=== PATIENT | female | born 1975 | race Caucasian/White ===

== ENCOUNTER → 2017-01-04 | Outpatient (REF) | payer OTHER | LOC: M LAB REF 18:39 | PROVIDERS: ATTEND Family Medicine | DX: Z12.4 Encounter for screening for malignant neoplasm of cervix (principal) ==

== ENCOUNTER → 2017-08-11 | Outpatient (CLI) | payer OTHER ==
[2017-08-11 18:12] LABS: BASO # 0.1 10^3/uL (0.0-0.2); EOS # 0.1 10^3/uL (0.0-0.50); EOS % 1.9 % (0.0-3.0); HEMATOCRIT 39.3 % (36.0-47.0); IMMATURE GRANULOCYTE % 0.2 % (0-3.0); LYMPH # 1.6 10^3/uL (1.5-4.5); MEAN CORPUSCULAR HEMOGLOBIN 31.1 pg (27.0-33.0); MEAN CORPUSCULAR HGB CONC 33.1 g/dl (32.0-36.5); MONO # 0.3 10^3/uL (0.0-0.8); MONO % 6.5 % (0.0-5.0); NEUTROPHILS # 2.7 10^3/uL (1.8-7.7); NEUTROPHILS % 56.4 % (36.0-66.0); PLATELET COUNT, AUTOMATED 249 10^3/uL (150-450); RED BLOOD COUNT 4.18 10^6/uL (4.00-5.40); RED CELL DISTRIBUTION WIDTH 12.4 % (11.5-14.5); WHITE BLOOD COUNT 4.8 10^3/uL (4.0-10.0)
[2017-08-11 18:49] LABS: TOTAL 25(OH) VITAMIN D 34.8 NG/ML (30.0-100.0); VITAMIN B12 LEVEL 298 PG/ML
[2017-08-11 18:57] LABS: ALBUMIN 4.4 GM/DL (3.2-5.2); ALBUMIN/GLOBULIN RATIO 1.47 (1.00-1.93); ALKALINE PHOSPHATASE 44 U/L (45-117); ALT/SGPT 23 U/L (12-78); ANION GAP 6 MEQ/L (8-16); AST/SGOT 15 U/L (7-37); BILIRUBIN,TOTAL 0.6 MG/DL (0.2-1.0); BLOOD UREA NITROGEN 10 MG/DL (7-18); CALCIUM LEVEL 8.8 MG/DL (8.5-10.1); CARBON DIOXIDE LEVEL 29 MEQ/L (21-32); CHLORIDE LEVEL 107 MEQ/L (98-107); CREATININE FOR GFR 0.83 MG/DL (0.55-1.30); FREE T4 0.81 NG/DL (0.76-1.46); GLOMERULAR FILTRATION RATE > 60.0 (>58); GLUCOSE, FASTING 82 MG/DL (70-100); MAGNESIUM LEVEL 2.2 MG/DL (1.8-2.4); POTASSIUM SERUM 4.2 MEQ/L (3.5-5.1); SODIUM LEVEL 142 MEQ/L (136-145); TOTAL PROTEIN 7.4 GM/DL (6.4-8.2)
[2017-08-14 00:06] LABS: HSV IgM TYPES 1&2 <0.91 Ratio (0.00-0.90); HSV TYPE I IgG SPECIFIC 1.28 index (0.00-0.90); HSV TYPE II IgG SPECIFIC <0.91 index (0.00-0.90); Lyme Disease IgG/IgM Antibodie <0.91 ISR (0.00-0.90); Lyme Disease IgM Ab Quantitati <0.80 index (0.00-0.79)
== END ==
LOC: M SMT 12:59
DX: F45.8 Other somatoform disorders (principal)
CPT/HCPCS: 82746

== ENCOUNTER → 2018-08-21 | Outpatient (CLI) | payer OTHER ==
[2018-08-21 08:26] LABS: FREE T4 0.73 NG/DL (0.76-1.46); THYROID STIMULATING HORMONE 1.72 uIU/ML (0.358-3.740)
[2018-08-21 10:44] LABS: FOLLICLE STIMULATING HORMONE 6.6 mIU/mL; LUTEINIZING HORMONE 3.9 mIU/mL
== END ==
LOC: M LAB 07:24
PROVIDERS: ATTEND Family Medicine
DX: N92.6 Irregular menstruation, unspecified (principal); L68.0 Hirsutism

== ENCOUNTER → 2018-10-23 | Outpatient (REF) | payer OTHER ==
[2018-10-23 10:16] LABS: FREE T4 0.67 NG/DL (0.76-1.46); THYROID STIMULATING HORMONE 2.59 uIU/ML (0.358-3.740)
== END ==
LOC: M SFHCPLAZ 08:02
PROVIDERS: ATTEND Family Medicine
DX: R79.89 Other specified abnormal findings of blood chemistry (principal)

== ENCOUNTER → 2018-11-02 | Outpatient (CLI) | payer OTHER ==
--- NOTE | 2018-11-02 17:04 | REP ---
HISTORY: Vaginal bleeding with metromenorrhagia. COMPARISON: None. Transvesical and transvaginal imaging was obtained. The uterus measures 10.2 x 5 x 6.4 cm. The parenchymal echo pattern is heterogenous but there are no discrete masses. The endometrial echo complex measures 8 mm in its greatest thickness. There is no free fluid in the cul-de-sac. No abnormal fluid is seen in the endometrial cavity or endocervical canal. The right ovary measures 2.8 x 1.5 x 2.7 cm and is within normal limits with an RI of 0.41. The left ovary measures 5.1 x 3.7 x 4.6 cm. Within the substance of the left ovary there is a 3.8 x 2.5 x 3.5 cm sized anechoic structure which exhibits posterior wall enhancement and increased through transmission. This is without septations or papillary projections. The left ovarian RI is 0.41. The urinary bladder measures 5 x 5 x 9 cm. IMPRESSION: Left ovarian cyst as described above. Two month followup is suggested. Electronically Signed by Davi Taylor DO 11/02/2018 06:15 P
== END ==
LOC: M RAD 15:17
PROVIDERS: ATTEND Specialist
DX: N93.8 Other specified abnormal uterine and vaginal bleeding (principal); N83.202 Unspecified ovarian cyst, left side

== ENCOUNTER → 2019-01-12 | Outpatient (CLI) | payer OTHER ==
--- NOTE | 2019-01-12 16:21 | REP ---
PELVIC ULTRASOUND: Real-time sonographic evaluation of pelvis performed utilizing transabdominal and endovaginal technique. Bladder measures 4.6 x 4.4 x 9.2 cm. Uterus measures 10.8 x 5.6 x 6.6 cm. Endometrial thickness is 15 mm. No endometrial fluid collection is seen. Right ovary measures 3.4 x 1.4 x 2.3 cm. There appears to be a small paraovarian cystic structure in the right adnexa, 2.3 x 1.2 x 1.7 cm. Left ovary measures 4.7 x 2.5 x 4.4 cm and contains a dominant follicle 2 cm in diameter. No other evidence of adnexal mass is seen. No free fluid is seen. IMPRESSION: Endometrial thickness 15 mm. Simple paraovarian cystic structure right adnexa 2.3 x 1.2 x 1.7 cm. Dominant follicle left ovary 2 cm in maximum diameter. No other evidence of adnexal mass or free fluid. I see no evidence of ovarian torsion, with blood flow seen in each ovary with duplex Doppler evaluation. Electronically Signed by Corby Carreno MD 01/12/2019 04:34 P
== END ==
LOC: M RAD 15:13
PROVIDERS: ATTEND Specialist
DX: N93.9 Abnormal uterine and vaginal bleeding, unspecified (principal)

== ENCOUNTER → 2019-01-15 | Outpatient (CLI) | payer OTHER ==
[2019-01-15 09:05] LABS: FREE T4 0.76 NG/DL (0.76-1.46); THYROID STIMULATING HORMONE 2.92 uIU/ML (0.358-3.740)
== END ==
LOC: M LAB 07:58
PROVIDERS: ATTEND Family Medicine
DX: R79.89 Other specified abnormal findings of blood chemistry (principal)

== ENCOUNTER → 2019-03-22 | Outpatient (CLI) | payer OTHER ==
[2019-03-22 14:06] LABS: BASO % 0.8 % (0.0-1.0); EOS # 0.2 10^3/uL (0.0-0.5); EOS % 3.7 % (0.0-3.0); HEMATOCRIT 40.7 % (36.0-47.0); HEMOGLOBIN 13.1 g/dl (12.0-15.5); LYMPH # 1.5 10^3/uL (1.5-5.0); LYMPH % 30.2 % (24.0-44.0); MEAN CORPUSCULAR HEMOGLOBIN 30.5 pg (27.0-33.0); MEAN CORPUSCULAR HGB CONC 32.2 g/dl (32.0-36.5); MEAN CORPUSCULAR VOLUME 94.7 fl (80.0-96.0); MONO # 0.3 10^3/uL (0.0-0.8); MONO % 6.9 % (0.0-5.0); NEUTROPHILS # 2.8 10^3/uL (1.5-8.5); PLATELET COUNT, AUTOMATED 266 10^3/uL (150-450); WHITE BLOOD COUNT 4.9 10^3/uL (4.0-10.0)
[2019-03-22 14:07] LABS: HEMATOCRIT 40.7 % (36.0-47.0)
[2019-03-22 14:57] LABS: ALBUMIN 4.3 GM/DL (3.2-5.2); ALT/SGPT 19 U/L (12-78); BILIRUBIN,TOTAL 0.5 MG/DL (0.2-1.0); BLOOD UREA NITROGEN 16 MG/DL (7-18); CALCIUM LEVEL 8.6 MG/DL (8.5-10.1); CARBON DIOXIDE LEVEL 26 MEQ/L (21-32); CHLORIDE LEVEL 107 MEQ/L (98-107); CHOLESTEROL LEVEL 173 MG/DL (<200); CHOLESTEROL RISK RATIO 1.632 (<5); CREATININE FOR GFR 0.82 MG/DL (0.55-1.30); GLOMERULAR FILTRATION RATE > 60.0 (>58); GLUCOSE, FASTING 94 MG/DL (70-100); HDL CHOLESTEROL 106 MG/DL (>40); IMMUNOGLOBULIN G 931 MG/DL (681-1648); LDL CHOLESTEROL 57 MG/DL (<100); NON-HDL-C 67 MG/DL; POTASSIUM SERUM 4.4 MEQ/L (3.5-5.1); SODIUM LEVEL 139 MEQ/L (136-145); TOTAL 25(OH) VITAMIN D 51.9 NG/ML (30.0-100.0); TOTAL PROTEIN 7.1 GM/DL (6.4-8.2); TRIGLYCERIDES LEVEL 49 MG/DL (<150); VITAMIN B12 LEVEL 504 PG/ML (247-911)
[2019-03-22 15:00] LABS: ALBUMIN 4.2 GM/DL (3.2-5.2); ALT/SGPT 15 U/L (12-78); BILIRUBIN,TOTAL 0.5 MG/DL (0.2-1.0); BLOOD UREA NITROGEN 16 MG/DL (7-18); CALCIUM LEVEL 8.6 MG/DL (8.5-10.1); CARBON DIOXIDE LEVEL 26 MEQ/L (21-32); CHLORIDE LEVEL 107 MEQ/L (98-107); CHOLESTEROL LEVEL 169 MG/DL (<200); CHOLESTEROL RISK RATIO 1.625 (<5); CREATININE FOR GFR 0.78 MG/DL (0.55-1.30); FREE T4 0.83 NG/DL (0.76-1.46); GLOMERULAR FILTRATION RATE > 60.0 (>58); GLUCOSE, FASTING 97 MG/DL (70-100); HDL CHOLESTEROL 104 MG/DL (>40); LDL CHOLESTEROL 55 MG/DL (<100); NON-HDL-C 65 MG/DL; POTASSIUM SERUM 4.4 MEQ/L (3.5-5.1); SODIUM LEVEL 139 MEQ/L (136-145); TOTAL PROTEIN 7.1 GM/DL (6.4-8.2); TRIGLYCERIDES LEVEL 48 MG/DL (<150)
== END ==
LOC: M PLALAB 08:24
PROVIDERS: ATTEND Family Medicine
DX: Z13.1 Encounter for screening for diabetes mellitus (principal); Z13.220 Encounter for screening for lipoid disorders; R79.89 Other specified abnormal findings of blood chemistry; F43.8 Other reactions to severe stress; M62.838 Other muscle spasm

== ENCOUNTER → 2019-11-21 | Outpatient (REF) | payer OTHER | LOC: M SFHCWAGY 19:03 | PROVIDERS: ATTEND Specialist | DX: Z12.4 Encounter for screening for malignant neoplasm of cervix (principal) | CPT/HCPCS: 87624; G0123 ==

== ENCOUNTER → 2020-08-13 | Outpatient (CLI) | payer OTHER ==
--- NOTE | 2020-08-13 15:35 | REPMRS ---
Patient History The patient states she had a clinical breast exam in February2020. Family history of prostate cancer at age 50 or over in maternal grandfather, prostate cancer at age 50 or over in maternal uncle. Patient states no breast complaints. Patient has signed the MRS history sheet. Digital Woman Screen Mammo: August 13, 2020 - Exam #: [id number] Bilateral CC and MLO view(s) were taken. Technologist: Mary Stallings, Technologist Prior study comparison: January 22, 2019, bilateral digital mammo screening bilat, performed at [facility]. January 18, 2018, bilateral digital mammo screening bilat, performed at [facility]. FINDINGS: There are scattered fibroglandular densities. Screening. Digital screening (2D) mammography was performed bilaterally in the CC and MLO projections. Additionally, breast tomosynthesis (3D mammography) was performed bilaterally in the CC and MLO projections. Todays exam was compared to the prior exams.There are no prior DBT images for comparison. By history, the patient has no complaints of a palpable breast abnormality or other significant breast complaints. The breasts are unchanged in size and shape. There are no kaleb-soft tissue densities or spiculated masses. There is no internal architectural distortion. There are no suspicious kaleb-calcific clusters. Skin thickening or nipple retraction is not present. IMPRESSION: BI-RADS Category 2- Benign Findings. There is no evidence of malignant alteration of the breasts. Followup examination recommended in one year. The Volpara volumetric breast density category is B, there are scattered areas of fibroglandular density. This mammogram was read with the assistance of [employer],an FDA approved computer aided detection system for mammography. The lifetime Tyrer-Cuzick score is 11.4 % Negative x-ray reports should not delay surgical consultation if a dominant or clinically suspicious mass is present. Not all breast cancers can be identified by mammography. Therefore, we recommend that you continue to perform regular breast self-examination and physical examination and then promptly contact your physician of any concerns or changes. Adenosis and dense breasts may obscure an underlying neoplasm. Assessment: BI-RADS/ACR category 2 mammogram. Benign Findings. Recommendation Routine screening mammogram of both breasts in 1 year. Electronically Signed By: Davi Taylor DO 08/13/20 [id number]
== END ==
LOC: M WHC 14:52
PROVIDERS: ATTEND Family Medicine
DX: Z12.31 Encounter for screening mammogram for malignant neoplasm of breast (principal)

== ENCOUNTER 2020-12-30 13:41 | Emergency (ER) | payer OTHER ==
[~2020-12-30] VITALS: Ht 175.3 cm; Wt 69.9 kg
--- OUTSIDE RECORDS SUMMARY | 2020-12-30 13:48 | CCD ---
Author Author [facility] Organization [facility] Address Unknown Phone Unavailable Support Name Relationship Address Phone PIVOT Next Of Kin [address] [facility] [address] [place] [address] [employer] Next Of Kin [address] [place] [address] [place] [employer] Next Of Kin [address] [place] [id number] Carrington Bloom [facility] [address] [place] [address] Unavailable Re-disclosure Warning The records that you are about to access may contain information from federally-assisted alcohol or drug abuse programs. If such information is present, then the following federally mandated warning applies: This information has been disclosed to you from records protected by federal confidentiality rules (42 CFR part 2). The federal rules prohibit you from making any further disclosure of this information unless further disclosure is expressly permitted by the written consent of the person to whom it pertains or as otherwise permitted by 42 CFR part 2. A general authorization for the release of medical or other information is NOT sufficient for this purpose. The Federal rules restrict any use of the information to criminally investigate or prosecute any alcohol or drug abuse patient.The records that you are about to access may contain highly sensitive health information, the redisclosure of which is protected by Article 27-F of the [facility] Public Health law. If you continue you may have access to information: Regarding HIV / AIDS; Provided by facilities licensed or operated by the [facility] Office of Mental Health; or Provided by the [facility] Office for People With Developmental Disabilities. If such information is present, then the following [facility] mandated warning applies: This information has been disclosed to you from confidential records which are protected by state law. State law prohibits you from making any further disclosure of this information without the specific written consent of the person to whom it pertains, or as otherwise permitted by law. Any unauthorized further disclosure in violation of state law may result in a fine or care home sentence or both. A general authorization for the release of medical or other information is NOT sufficient authorization for further disc losure. Family History Family Member Name Family Member Gender Family Member Status Date o f Status Description Data Source(s) Unknown Male Problem MEDENT ([facility]) Encounters Encounter Providers Location Date Indications Data Source(s ) Unknown [address] [facility] [address] 11/02/2020 12:00:00 AM EDT eCW1 ([facility]) [place] [address] [facility] [place] [address] 05/22/2020 12:00:00 AM EST eCW1 ([facility]) Unknown [address] [facility] [address] 04/10/2020 12:00:00 AM EST eCW1 ([facility]) [place] [address] [facility] [address] [place] [address] 01/26/2020 12:00:00 AM EST eCW1 ([facility]) Immunizations Vaccine Date Status Description Data Source(s) COVID-19 dose #2 given elsewhere Unspecified 04/18/2020 08:2 3:00 AM EST completed eCW1 ([facility]) COVID-19 dose #2 given elsewhere Unspecified 04/18/2020 08:2 3:00 AM EST completed eCW1 ([facility]) COVID-19 VACCINE Moderna 04/17/2020 12:00:00 AM EST completed [facility] Vaccine Series Complete: YESThis Data wa s Submitted to [facility] Via [employer]. COVID-19 dose #1 given elsewhere Unspecified 03/21/2020 08:2 2:00 AM EST completed eCW1 ([facility]) COVID-19 dose #1 given elsewhere Unspecified 03/21/2020 08:2 2:00 AM EST completed eCW1 ([facility]) COVID-19 VACCINE Moderna 03/20/2020 12:00:00 AM EST completed [facility] Vaccine Series Complete: NOThis Data was Submitted to [facility] Via ebookpie. INFLUENZA VIRUS VACCINE QUADRIVAL [id number](6 MOS AND UP)/PF 01/14/2020 12:00:00 AM EST completed [facility] influenza, recombinant, quadrIvalent,injectable, prese rvative free 01/01/2020 08:23:00 AM EDT completed eCW1 ([facility]) influenza, recombinant, quadrIvalent,injectable, prese rvative free 01/01/2020 08:23:00 AM EDT completed eCW1 ([facility]) Medications No Information Insurance Providers Payer name Policy type / Coverage type Policy ID Covered democrat ID Covered democrat's relationship to joshi Policy Joshi Plan Information [facility] [id number] [facility] [id number] ANSI-Commercial [id number] ANSI-Commercial [id number] ANSI-Commercial [id number] ANSI-Commercial [id number] [facility] Commercial [id number] .[id number] Self [id number] [facility] Commercial [id number] Family Dependent 01 [id number] [facility] Commercial [id number] .[id number] .[id number] Self [id number] [facility] [employer] [id number] Family Dependent 01 [id number] Nitin Truong [employer] [id number] [id number] .[id number] Self [id number] [facility] [employer] [id number] Family Dependent 01 [id number] Nitin Truong [employer] [id number] [id number] .806.3789.0 Self [id number] [facility] [employer] [id number] [id number] Family Dependent 01 [id number] Nitin Truong [employer] [id number] [id number] .806.3789.0 Self [id number] [facility] [employer] [id number] Family Dependent 01 [id number] Nitin Truong [employer] [id number] [id number] .806.3789.0 Self [facility] [employer] [id number] [id number] Family Dependent 01 [id number] Nitin Truong [employer] [id number] [id number] .806.3789.0 Self [id number] [facility] [employer] [id number] [id number] Family Dependent 01 [id number] RHEA TRUONG O UNAVAILABLE [id number] S UNAV AILABLE [facility] Commercial [id number] Family Dependent [id number] [employer]/ AD P [id number] P [id number] [facility] [id number] [facility] [id number] 2 [id number] Problems, Conditions, and Diagnoses No Information Surgeries/Procedures No Information Results No Information Social History Code Duration Value Status Description Data Source(s ) Smoking 05/22/2020 12:00:00 AM EST Former Smoker completed Former Smoker eCW1 ([facility]) Smoking 05/22/2020 12:00:00 AM EST Former Smoker completed Former Smoker eCW1 ([facility]) Vital Signs ID Date Data Source UNK Name Value Range Interpretation Code Description Data Source(s) Body weight 157 [lb_av] 157 [lb_av] eCW1 ([facility]) Body height [in_i] eCW1 ([facility]) Body mass index (BMI) [Ratio] 30.66 kg/m2 30.66 kg/m2 eCW1 ([facility]) Heart rate 79 /min 79 /min eCW1 ([facility]) Respiratory rate 18 /min 18 /min eCW1 ([facility]) Body temperature 98.2 [degF] 98.2 [degF] eCW1 ( [facility]) Systolic blood pressure 100 mm[Hg] 100 mm[Hg] e CW1 ([facility]) Diastolic blood pressure 62 mm[Hg] 62 mm[Hg] eCW1 ([facility])
--- OUTSIDE RECORDS SUMMARY | 2020-12-30 13:48 | CCD ---
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 Role Phone Skye Kent Unavailable PROBLEMS Type Condition ICD9-CM Code RUD29-CH Code Onset Dates Condition S tatus W/U Status Risk SNOMED Code Notes Problem Obesity (BMI 30.0-34.9) E66.9 Active confirmed [id number] Problem Chronic rhinitis J31.0 Active confirmed 860 36498 Problem Irregular menses N92.6 Active confirmed 801 09005 Problem Paresthesia R20.2 Active confirmed 52966301 Problem Muscle twitching R25.3 Active confirmed 602 53765 Problem Cigarette nicotine dependence in remission F17.211 Active confirmed 940026580 ALLERGIES Allergen (clinical drug ingredient) Drug/Non Drug Allergy do cumented on EMR Reaction Allergy Type Onset Date Status amoxicillin Amoxicillin([facility] Code:[address]-28) Hives Drug Aller gy Active ENCOUNTERS from 1976 to 2020-11-03 Encounter Location Date Provider Diagnosis [address] [phone] [place] [address] Oct, Skye Kent Chronic rhinitis J31.0 IMMUNIZATIONS Vaccine Route Administration Date Status COVID-19 dose #2 given elsewhere Unspecified Unknown Apr 18, 2020 Administered COVID-19 dose #1 given elsewhere Unspecified Unknown Mar 21, 2020 Administered Influenza 18 yrs & older Flublok Unknown Jan 01, 2020 Administered Influenza 18 yrs & older Flublok IM Intramuscular Jan 10, 2019 Administered SOCIAL HISTORY Tobacco Use: Social History Observation Description Date Details (start date - stop date) Former Smoker Sex Assigned At : Social History Observation Description Sex Assigned At Unknown Education: Question Answer Notes Level of Education: College Audit Question Answer Notes Total Score: 3 Interpretation: Alcohol Education Language: Question Answer Notes Languages spoken: Pashto Spiritism: Question Answer Notes Spiritism 33 None Domestic Violence: Question Answer Notes Status: Sexual Hx: Question Answer Notes Had sex in the last 12 months (vaginal, oral, or anal)? Yes LMP: 06/28/2018 Have you ever had an STD? Yes with Men only Use protection? No Other? Yes Drug and Alcohol Question Answer Notes Total Score: 0 Interpretation: No problems reported Tobacco Use: Question Answer Notes Are you a: former smoker How long has it been since you last smoked? 1-5 years REASON FOR REFERRAL No Information VITAL SIGNS No information MEDICATIONS Medication SIG (Take, Route, Frequency, Duration) Notes Start Da te End Date Status Magnesium 300 MG 1 capsule with a meal Orally Once a day Not-Taking Senna 8.6 MG 4 tabs Orally Once a day Active Flonase Allergy Relief 50 MCG/ACT 1 spray in each nost ril Nasally Once a day for 90 days Active Ibuprofen 200mg 1 tablet Orally Three times a day Active Multi For Her Active Vitamin D3 1000 mcg 1 capsule Orally Once a day Active Dulcolax 5 MG 2 tablets as needed for cons tipation Orally Once a day for 30 day(s) Not-Taking PROCEDURES No Information RESULTS No Results REASON FOR VISIT New Refill Request MEDICAL (GENERAL) HISTORY Type Description Date Medical History Muscle twitching since 2012 Surgical History C section Surgical History bunionectomy Surgical History left quad muscle biopsy 2014 Hospitalization History surgical related Goals Section No Information Health Concerns No Information MEDICAL EQUIPMENT No Information MENTAL STATUS No Information FUNCTIONAL STATUS No Information ASSESSMENTS Encounter Date Diagnosis Assessment Notes Treatment Notes Treatm ent Clinical Notes Oct, Chronic rhinitis (ICD-10 - J31.0) PLAN OF TREATMENT Medication Medication Name Sig Start Date Stop Date Flonase Allergy Relief 50 MCG/ACT 1 spray in each nost ril Nasally Once a day for 90 days Next Appt Details Provider Name:Skye Kaur Georgehosea, 2021-05-25 08:15:00 AM, [address] [facility], , [place], [address], Insurance Providers Payer Name Payer Address Payer Phone Insured Name Patient Relati onship to Insured Coverage Start Date Coverage End Date [address] [phone] [employer] B[employer]OM self
[2020-12-30] MEDS ORDERED: VITMTA PO (14:10)
[2020-12-30] MEDS ORDERED: TETRACAINE 0.5% OPHTH SOLN 4ML OD ONE (19:55)
[2020-12-30] MEDS ORDERED: FLUORESCEIN OPHTH 1 MG STRIP OD ONE (19:55)
[2020-12-30] MEDS ORDERED: OFLO3OPSO OD (20:09)
[2020-12-30] MEDS ORDERED: CIPROFLOXACIN 0.3% OPHTH SOLN 2.5ML OD ONE (20:10)
--- OUTSIDE RECORDS SUMMARY | 2020-12-30 20:21 | CCD ---
Author Author [facility] Organization [facility] Address Unknown Phone Unavailable Support Name Relationship Address Phone PIVOT Next Of Kin [address] [facility] [address] [place] [address] [employer] Next Of Kin [address] [place] [address] [place] [employer] Next Of Kin [address] [place] [phone] Carrington Bloom [facility] [address] [place] [address] Unavailable Re-disclosure Warning The records that you [...] is protected by Article 27-F of the [facility] Public Health law. If you continue you may have access to information: Regarding HIV / AIDS; Provided by facilities licensed or operated by the [facility] Office of Mental Health; or Provided by the [facility] Office for People With Developmental Disabilities. If such information is present, then the following [facility] mandated warning applies: This information has been [...] law may result in a fine or fci sentence or both. A general authorization for the release of medical or other information is NOT sufficient authorization for further disc losure. Family History Family Member Name Family Member Gender Family Member Status Date o f Status Description Data Source(s) Unknown Male Problem [facility] ([facility]) Encounters Encounter Providers Location Date Indications Data Source(s ) Unknown [address] [facility] [address] 11/02/2020 12:00:00 AM EDT eCW1 (Formerly [facility], [facility]) [place] [address] [facility] [place] [address] 05/22/2020 12:00:00 AM EST eCW1 ([facility]ly [facility]) Unknown [address] [facility] [address] 04/10/2020 12:00:00 AM EST eCW1 ([facility]ly [facility]) Unknown [address] [facility] [place] [address] 01/26/2020 12:00:00 AM EST eCW1 (Formerly [facility], [facility]) Immunizations Vaccine Date Status Description Data Source(s) COVID-19 dose #2 given elsewhere Unspecified 04/18/2020 08:2 3:00 AM EST completed eCW1 ([facility]ly [facility], [facility]) COVID-19 dose #2 given elsewhere Unspecified 04/18/2020 08:2 3:00 AM EST completed eCW1 (Formerly [facility], [facility]) COVID-19 VACCINE Moderna 04/17/2020 12:00:00 AM EST completed [employer] Vaccine Series Complete: YESThis Data wa s Submitted to [facility] Via [employer]. COVID-19 dose #1 given elsewhere Unspecified 03/21/2020 08:2 2:00 AM EST completed eCW1 ([facility]ly [facility]) COVID-19 dose #1 given elsewhere Unspecified 03/21/2020 08:2 2:00 AM EST completed eCW1 (Formerly [facility], [facility]) COVID-19 VACCINE Moderna 03/20/2020 12:00:00 AM EST completed [facility] Vaccine Series Complete: NOThis Data was Submitted to [facility] Via Perfect. INFLUENZA VIRUS VACCINE QUADRIVAL [id number](6 MOS AND UP)/PF 01/14/2020 12:00:00 AM EST completed [facility] influenza, recombinant, quadrIvalent,injectable, prese rvative free 01/01/2020 08:23:00 AM EDT completed eCW1 (Formerly [facility]) influenza, recombinant, quadrIvalent,injectable, prese rvative free 01/01/2020 08:23:00 AM EDT completed eCW1 (Formerly [facility]) Medications No Information Insurance Providers Payer name Policy type / Coverage type Policy ID Covered green party ID Covered green party's relationship to joshi Policy Joshi Plan Information [facility] [id number] [facility] [id number] [facility] O [id number] O [id number] [facility] [id number] [facility] [id number] [facility] [id number] [facility] [id number] [facility] Commercial [id number] .[id number] .806.3789.0 Self [id number] [facility] Commercial [id number] .[id number] Family Dependent 01 [id number] [facility] Commercial [id number]9 .806.3789.0 Self [id number] [facility] [address] [id number] 2.16.840.1.099712.3.227.99.806.3789.0 Family Dependent 01 [id number] [id number] 2.16.840.1.263456.3.227.99 .806.3789.0 Self [id number] [facility] [address] [id number] 2.16.840.1.447921.3.227.99.806.3789.0 Family Dependent 01 [id number] [id number] 2.16.840.1.619029.3.227.99 .806.3789.0 Self [id number] [facility] [address] [id number] 2.16.840.1.032139.3.227.99.806.3789.0 Family Dependent 01 [id number] [address] [place] [address] [id number] 2.16.840.1.215842.3.227.99 .806.3789.0 Self [id number] [facility] [address] [id number] 2.16.840.1.220501.3.227.99.806.3789.0 Family Dependent 01 [id number] [id number] 2.16.840.1.886685.3.227.99 .806.3789.0 Self [id number] [facility] [address] [id number] 2.16.840.1.423968.3.227.99.806.3789.0 Family Dependent 01 [id number] [id number] 2.16.840.1.840716.3.227.99 .806.3789.0 Self [id number] [facility] [address] [id number] 2.16.840.1.837265.3.227.99.806.3789.0 Family Dependent 01 [id number] [place] O UNAVAILABLE [id number] S UNAV AILABLE [facility] Commercial [id number]06.3789.0 Family Dependent 01 [id number] [facility]/ AD P [id number] P [id number] PIVOT [phone] SP [id number] [facility] [id number] [facility] [id number] Problems, Conditions, and Diagnoses No Information Surgeries/Procedures No Information Results No Information Social History Code Duration Value Status Description Data Source(s ) Smoking 05/22/2020 12:00:00 AM EST Former Smoker completed Former Smoker eCW1 (Replaced By [facility]) Smoking 05/22/2020 12:00:00 AM EST Former Smoker completed Former Smoker eCW1 (Replaced By [facility]) Vital Signs ID Date Data Source UNK Name Value Range Interpretation Code Description Data Source(s) Body weight 157 [lb_av] 157 [lb_av] eCW1 ([facility]) Body height [in_i] eCW1 ([facility]) Body mass index (BMI) [Ratio] 30.66 kg/m2 30.66 kg/m2 eCW1 (Replaced By [facility]) Heart rate 79 /min 79 /min eCW1 ([facility]) Respiratory rate 18 /min 18 /min eCW1 ([facility]) Body temperature 98.2 [degF] 98.2 [degF] eCW1 ( Replaced By [facility]) Systolic blood pressure 100 mm[Hg] 100 mm[Hg] e CW1 (Replaced By [facility]) Diastolic blood pressure 62 mm[Hg] 62 mm[Hg] eCW1 (Replaced By [facility])
[2020-12-30 20:42] VITALS: BP 113/73
== END 2020-12-30 21:28 | disposition home or self-care (01) ==
LOC: M ED 13:41
DX: S05.01XA Injury of conjunctiva and corneal abrasion without foreign body, right eye, initial encounter (principal); W26.8XXA Contact with other sharp object(s), not elsewhere classified, initial encounter; Y92.9 Unspecified place or not applicable; Y93.9 Activity, unspecified; Y99.9 Unspecified external cause status; Z88.1 Allergy status to other antibiotic agents

== ENCOUNTER → 2021-03-02 | Outpatient (CLI) | payer OTHER ==
[~2021-03-02] MED LIST: OFLO3OPSO OD; VITMTA PO
== END ==
LOC: M LABSMTC 12:30
PROVIDERS: ATTEND Pediatrics
DX: Z20.822 Contact with and (suspected) exposure to COVID-19 (principal)
CPT/HCPCS: C9803; U0003

== ENCOUNTER → 2021-03-17 | Outpatient (REF) | payer OTHER | LOC: M SFHCPLAZ 16:49 | PROVIDERS: ATTEND Physician Assistant | DX: R09.89 Other specified symptoms and signs involving the circulatory and respiratory systems (principal) | CPT/HCPCS: 87426; G0463; U0003 ==

== ENCOUNTER → 2021-07-31 | Outpatient (CLI) | payer OTHER ==
[2021-07-31 11:39] LABS: FREE T4 0.82 NG/DL (0.76-1.46); THYROID STIMULATING HORMONE 3.27 uIU/ML (0.358-3.740)
== END ==
LOC: M PLALAB 07:24
PROVIDERS: ATTEND Family Medicine
DX: N92.6 Irregular menstruation, unspecified (principal)

== ENCOUNTER 2022-01-07 09:57 | Emergency (ER) | payer OTHER ==
[~2022-01-07] VITALS: Ht 175.3 cm; Wt 70.4 kg
[2022-01-07 10:54] LABS: EOS # 0.2 10^3/uL (0.0-0.5); EOS % 4.5 % (0.0-3.0); HEMATOCRIT 36.3 % (36.0-47.0); HEMOGLOBIN 12.2 g/dl (12.0-15.5); LYMPH # 1.5 10^3/uL (1.5-5.0); LYMPH % 35.7 % (24.0-44.0); MEAN CORPUSCULAR HEMOGLOBIN 30.4 pg (27.0-33.0); MEAN CORPUSCULAR HGB CONC 33.6 g/dl (32.0-36.5); MEAN CORPUSCULAR VOLUME 90.5 fl (80.0-96.0); MONO # 0.3 10^3/uL (0.0-0.8); MONO % 6.7 % (2.0-8.0); NEUTROPHILS # 2.2 10^3/uL (1.5-8.5); NEUTROPHILS % 51.9 % (36.0-66.0); PLATELET COUNT, AUTOMATED 199 10^3/uL (150-450); RED BLOOD COUNT 4.01 10^6/uL (4.00-5.40); WHITE BLOOD COUNT 4.2 10^3/uL (4.0-10.0)
[2022-01-07 11:26] LABS: CK-MB VALUE MASS < 1.0 NG/ML (<3.6); CPK CREATINE PHOSPHOKINASE 56 U/L (26-192); MB/CK RELATIVE INDEX 1.79 (< OR =4)
[2022-01-07 11:30] LABS: HCG, SERUM QUALITATIVE NEGATIVE (NEGATIVE)
[2022-01-07 11:32] LABS: ALT/SGPT 22 U/L (12-78); BILIRUBIN,DIRECT 0.2 MG/DL (0.0-0.2); BILIRUBIN,TOTAL 0.5 MG/DL (0.2-1.0); BLOOD UREA NITROGEN 16 MG/DL (7-18); CARBON DIOXIDE LEVEL 30 MEQ/L (21-32); CHLORIDE LEVEL 106 MEQ/L (98-107); CREATININE FOR GFR 0.87 MG/DL (0.55-1.30); FREE T4 0.82 NG/DL (0.76-1.46); GLOMERULAR FILTRATION RATE > 60.0 (>58); GLUCOSE, FASTING 89 MG/DL (70-100); LIPASE 166 U/L (73-393); POTASSIUM SERUM 4.1 MEQ/L (3.5-5.1); SODIUM LEVEL 141 MEQ/L (136-145); TOTAL PROTEIN 7.2 GM/DL (6.4-8.2)
[2022-01-07 13:36] LABS: CK-MB VALUE MASS < 1.0 NG/ML (<3.6); CPK CREATINE PHOSPHOKINASE 56 U/L (26-192); MB/CK RELATIVE INDEX 1.79 (< OR =4)
[2022-01-07] MEDS ORDERED: COMBIVENT RESPIMAT 100-20MCG INHALER 4GM INH ONE (14:05)
[2022-01-07 16:00] VITALS: BP 117/64
[2022-01-07] MEDS ORDERED: PRED20TA PO (16:10)
== END 2022-01-07 16:16 | disposition home or self-care (01) ==
LOC: M ED 09:57
DX: R07.9 Chest pain, unspecified (principal); R00.1 Bradycardia, unspecified; Z87.891 Personal history of nicotine dependence; Z88.1 Allergy status to other antibiotic agents; Z79.899 Other long term (current) drug therapy

== ENCOUNTER → 2022-01-13 | Outpatient (CLI) | payer OTHER ==
[~2022-01-13] MED LIST changes: +PRED20TA PO
[2022-01-13 15:02] LABS: C REACTIVE PROTEIN QUANTITATIV < 0.30 MG/DL (0.00-0.30)
[2022-01-13 15:57] LABS: FOLLICLE STIMULATING HORMONE 57.8 mIU/mL; LUTEINIZING HORMONE 29.9 mIU/mL
[2022-01-16 16:07] LABS: ANA (HEP2) Positive (.); ESTROGENS TOTAL 54 pg/mL (.)
== END ==
LOC: M PLALAB 10:37
PROVIDERS: ATTEND Physician Assistant
DX: R07.9 Chest pain, unspecified (principal)
CPT/HCPCS: 36415; 82672; 83001; 83002; 85652; 86038; 86140; G0463

== ENCOUNTER → 2022-01-20 | Outpatient (CLI) | payer OTHER | LOC: M PLALAB 12:37 | PROVIDERS: ATTEND Physician Assistant | DX: R76.8 Other specified abnormal immunological findings in serum (principal) ==

== ENCOUNTER 2022-03-06 11:52 | Emergency (ER) | payer OTHER ==
[~2022-03-06] VITALS: Ht 172.7 cm; Wt 63.6 kg
[2022-03-06] MEDS ORDERED: ATIV1TAB7 PO (13:43)
[2022-03-06 14:02] VITALS: BP 125/78
== END 2022-03-06 14:04 | disposition home or self-care (01) ==
LOC: M ED 11:52 → EDBD 11:52 → M ED 14:04
DX: F43.0 Acute stress reaction (principal); Z87.891 Personal history of nicotine dependence; Z88.1 Allergy status to other antibiotic agents; Z79.52 Long term (current) use of systemic steroids

== ENCOUNTER → 2022-04-20 | Outpatient (CLI) | payer OTHER ==
[~2022-04-20] MED LIST changes: +ATIV1TAB7 PO
== END ==
LOC: M WHC 09:51
PROVIDERS: ATTEND Specialist
DX: Z12.31 Encounter for screening mammogram for malignant neoplasm of breast (principal)

== ENCOUNTER → 2022-04-20 | Outpatient (REF) | payer OTHER ==
[2022-04-20 17:06] LABS: GC DNA AMPLIFICATION NEGATIVE (NEGATIVE)
== END ==
LOC: M PLALAB 09:09
PROVIDERS: ATTEND Specialist
DX: Z01.419 Encounter for gynecological examination (general) (routine) without abnormal findings (principal); Z20.1 Contact with and (suspected) exposure to tuberculosis
CPT/HCPCS: 77063; 77067; 87624; 87810; 87850; G0123

== ENCOUNTER 2022-05-18 07:48 | Emergency (ER) | payer OTHER ==
[~2022-05-18] VITALS: Ht 175.3 cm; Wt 61.4 kg
[2022-05-18] MEDS ORDERED: MELA5CAP2 PO (07:57)
[2022-05-18] MEDS ORDERED: ESCITALOPRAM PO (07:57)
[2022-05-18 10:59] VITALS: BP 107/59
== END 2022-05-18 11:45 | disposition home or self-care (01) ==
LOC: M ED 07:48
DX: S99.912A Unspecified injury of left ankle, initial encounter (principal); W18.40XA Slipping, tripping and stumbling without falling, unspecified, initial encounter; Z88.1 Allergy status to other antibiotic agents; Z79.52 Long term (current) use of systemic steroids; Z79.899 Other long term (current) drug therapy; Y99.0 Civilian activity done for income or pay

== ENCOUNTER → 2024-04-24 | Outpatient (REF) | payer OTHER, BC ==
[~2024-04-24] MED LIST changes: +ESCITALOPRAM PO; +MELA5CAP2 PO; -OFLO3OPSO OD; +OFLO5DRO OD
[2024-04-26 13:22] LABS: HPV APTIMA Not Detected (Not Detected)
== END ==
LOC: M SFHCPLAZ 17:30
PROVIDERS: ATTEND Family Medicine
DX: Z12.4 Encounter for screening for malignant neoplasm of cervix (principal); N95.0 Postmenopausal bleeding
CPT/HCPCS: 87624; 88305; G0123

== ENCOUNTER → 2024-05-14 | Outpatient (CLI) | payer BC | LOC: M RAD 16:36 | PROVIDERS: ATTEND Family Medicine | DX: N95.0 Postmenopausal bleeding (principal); N88.8 Other specified noninflammatory disorders of cervix uteri ==

== ENCOUNTER → 2024-12-27 | Outpatient (CLI) | payer BC ==
[2024-12-27 11:02] LABS: BASO # 0.1 10^3/uL (0.0-0.2); BASO % 1.0 % (0.0-1.0); EOS # 0.3 10^3/uL (0.0-0.5); EOS % 5.2 % (0.0-3.0); LYMPH # 1.7 10^3/uL (1.5-5.0); LYMPH % 28.1 % (24.0-44.0); MONO # 0.4 10^3/uL (0.0-0.8); MONO % 7.0 % (2.0-8.0); NEUTROPHILS # 3.5 10^3/uL (1.5-8.5); NEUTROPHILS % 58.5 % (36.0-66.0); PLATELET COUNT, AUTOMATED 208 10^3/uL (150-450)
[2024-12-27 11:28] LABS: CALCIUM LEVEL 8.9 MG/DL (8.5-10.1); CARBON DIOXIDE LEVEL 30 MMOL/L (20-31); CHLORIDE LEVEL 103 MMOL/L (98-107); CHOLESTEROL LEVEL 198 MG/DL (<200); CHOLESTEROL RISK RATIO 2.37 (<5); CREATININE FOR GFR 0.77 MG/DL (0.55-1.30); GLOMERULAR FILTRATION RATE > 90.0 (>58); LDL CHOLESTEROL 96.6 MG/DL (<100); NON-HDL-C 114.8 MG/DL; POTASSIUM SERUM 4.7 MMOL/L (3.5-5.1); SODIUM LEVEL 142 MMOL/L (136-145); TRIGLYCERIDES LEVEL 91 MG/DL (<150)
== END ==
LOC: M PLALAB 08:57
PROVIDERS: ATTEND Family Medicine
DX: Z00.00 Encounter for general adult medical examination without abnormal findings (principal); L65.9 Nonscarring hair loss, unspecified

== ENCOUNTER → 2025-02-28 | Outpatient (CLI) | payer BC | LOC: M PLAIMG 13:32 | PROVIDERS: ATTEND Physician Assistant Medical | DX: M50.30 Other cervical disc degeneration, unspecified cervical region (principal) ==

== ENCOUNTER → 2025-03-12 | Outpatient (CLI) | payer BC | LOC: M PLAIMG 06:41 | PROVIDERS: ATTEND Physician Assistant Medical | DX: M54.2 Cervicalgia (principal) ==